=== PATIENT | female | born 2000 | race African-American/Black ===

== ENCOUNTER 2018-06-02 15:36 | Emergency (ER) | payer MEDICAID, OTHER ==
[~2018-06-02] VITALS: Ht 165.1 cm; Wt 70.0 kg
[~2018-06-02 15:36] MED LIST: ALBUTEROL; SINGULAIR
[2018-06-02] MEDS ORDERED: ONDANSETRON HCL 4MG/2ML INJ IV STA (15:59)
[2018-06-02] MEDS ORDERED: SODIUM CHLORIDE 0.9% 1,000 ML IV ONE (15:59)
[2018-06-02] MEDS ORDERED: ALBUTEROL (0.083%) 2.5MG/3ML NEB HHN STA (15:59)
[2018-06-02] MEDS ORDERED: METHYLPREDNISOLONE SOD SUCC 125 MG/2 ML VIAL IV STA (15:59)
[2018-06-02] MEDS ORDERED: IPRATROPIUM BROMIDE (0.02%) 0.5MG/2.5ML NEB HHN STA (15:59)
[2018-06-02] MEDS ORDERED: MORPHINE SULFATE 4 MG/ML CPJ (NOT FOR IM USE) IV STA (15:59)
[2018-06-02 16:49] LABS: HEMATOCRIT. 28.9 % (36.0-48.0); HEMOGLOBIN. 9.9 g/dL (12.0-16.0); MEAN CORPUSCULAR HEMOGLOBIN 31.5 pg (28.0-32.0); MEAN CORPUSCULAR VOLUME 92.2 fL (81.0-99.0); MEAN PLATELET VOLUME 7.4 fl (7.4-10.4); PLATELET 140 x1000/uL (130-400); RED BLOOD CELL COUNT 3.14 mill/uL (4.2-5.4); RED CELL DISTRIBUTION WIDTH 12.4 % (11.6-14.6)
[2018-06-02 16:54] LABS: CHLORIDE 104 mEq/L (98-107)
[2018-06-02 17:05] LABS: HCG SCREEN NEGATIVE
[2018-06-02 18:00] LABS: NUCLEATED RED BLOOD CELLS 2 /100 WBC
[2018-06-02 18:01] LABS: PLATELET ESTIMATE NORMAL
[2018-06-02 18:52] LABS: CLARITY URINE CLEAR (CLEAR); COLOR URINE YELLOW (YELLOW); KETONES URINE NEGATIVE (NEGATIVE); LEUKOCYTE ESTERASE URINE NEGATIVE (NEGATIVE); NITRITE URINE NEGATIVE (NEGATIVE); OCCULT BLOOD URINE NEGATIVE (NEGATIVE); PH URINE 8.5 (4.5-8.0); PROTEIN URINE NEGATIVE (NEGATIVE); SPECIFIC GRAVITY URINE 1.013 (1.005-1.030)
[2018-06-02 20:57] VITALS: BP 118/75
== END 2018-06-02 21:01 | disposition home or self-care (01) ==
LOC: ER 15:36
DX: K59.00 Constipation, unspecified (principal); J45.909 Unspecified asthma, uncomplicated; Z79.899 Other long term (current) drug therapy
CPT/HCPCS: 36415; 71045; 74177; 80053; 81003; 81025; 83690; 84703; 85025; 85610; 85730; 93005; 96374; 96375; 99285; J2270; J2405; J2930; J7030; J7611

== ENCOUNTER 2018-06-05 02:17 | Emergency (ER) | payer MEDICAID ==
[~2018-06-05] VITALS: Ht 165.1 cm; Wt 59.0 kg
[2018-06-05] MEDS ORDERED: FAMOTIDINE 20MG/2ML VIAL IV STA (02:59)
[2018-06-05] MEDS ORDERED: SODIUM CHLORIDE 0.9% 1,000 ML IV ONE (02:59)
[2018-06-05] MEDS ORDERED: ONDANSETRON HCL 4MG/2ML INJ IV STA (02:59)
[2018-06-05 03:33] LABS: HEMATOCRIT. 29.1 % (36.0-48.0); MEAN CORPUSCULAR HEMOGLOBIN 31.5 pg (28.0-32.0); MEAN CORPUSCULAR VOLUME 91.9 fL (81.0-99.0); MEAN PLATELET VOLUME 7.1 fl (7.4-10.4); PLATELET 314 x1000/uL (130-400); RED BLOOD CELL COUNT 3.16 mill/uL (4.2-5.4); RED CELL DISTRIBUTION WIDTH 12.6 % (11.6-14.6)
[2018-06-05 03:40] LABS: CHLORIDE 103 mEq/L (98-107); HCG SCREEN NEGATIVE
[2018-06-05] MEDS ORDERED: MORPHINE SULFATE 4 MG/ML CPJ (NOT FOR IM USE) IV ONE (03:45)
[2018-06-05 05:04] LABS: CLARITY URINE CLEAR (CLEAR); COLOR URINE YELLOW (YELLOW); KETONES URINE NEGATIVE (NEGATIVE); LEUKOCYTE ESTERASE URINE NEGATIVE (NEGATIVE); NITRITE URINE NEGATIVE (NEGATIVE); OCCULT BLOOD URINE NEGATIVE (NEGATIVE); PROTEIN URINE NEGATIVE (NEGATIVE); SPECIFIC GRAVITY URINE 1.013 (1.005-1.030)
[2018-06-05 05:29] VITALS: BP 127/55
[2018-06-05 07:27] LABS: PLATELET ESTIMATE NORMAL
== END 2018-06-05 05:31 | disposition home or self-care (01) ==
LOC: ER 02:17
DX: R10.84 Generalized abdominal pain (principal); K59.00 Constipation, unspecified; D64.9 Anemia, unspecified; R68.83 Chills (without fever); R11.2 Nausea with vomiting, unspecified; J45.909 Unspecified asthma, uncomplicated; M79.1 Myalgia; R09.89 Other specified symptoms and signs involving the circulatory and respiratory systems; Z94.81 Bone marrow transplant status
CPT/HCPCS: 36415; 80053; 81003; 81025; 83605; 83690; 84703; 85025; 96361; 96374; 96375; 99284; J2270; J2405; J3490; J7030

== ENCOUNTER 2018-06-16 12:56 | Emergency (ER) | payer MEDICAID ==
[~2018-06-16] VITALS: Ht 162.6 cm; Wt 55.0 kg
[2018-06-16] MEDS ORDERED: SODIUM CHLORIDE 0.9% 1,000 ML IV ONE (15:34)
[2018-06-16] MEDS ORDERED: ONDANSETRON HCL 4MG/2ML INJ IV STA (15:34)
[2018-06-16] MEDS ORDERED: KETOROLAC 30MG/ML VIAL IV STA (15:34)
[2018-06-16 17:20] LABS: HEMATOCRIT. 28.8 % (36.0-48.0); HEMOGLOBIN. 9.8 g/dL (12.0-16.0); MEAN CORPUSCULAR HEMOGLOBIN 31.7 pg (28.0-32.0); MEAN CORPUSCULAR VOLUME 92.6 fL (81.0-99.0); MEAN PLATELET VOLUME 7.7 fl (7.4-10.4); PLATELET 410 x1000/uL (130-400); RED BLOOD CELL COUNT 3.11 mill/uL (4.2-5.4); RED CELL DISTRIBUTION WIDTH 13.7 % (11.6-14.6)
[2018-06-16 17:27] LABS: CHLORIDE 106 mEq/L (98-107)
[2018-06-16] MEDS ORDERED: ACETAMINOPHEN WITH CODEINE 300/30MG TABLET PO NR (18:02)
[2018-06-16] MEDS ORDERED: CEFTRIAXONE 1 G PREMIX 50 ML IV NR (18:15)
[2018-06-16 18:37] LABS: PLATELET ESTIMATE SLIGHTLY INCREASED
[2018-06-16 18:54] LABS: CLARITY URINE TURBID (CLEAR); COLOR URINE YELLOW (YELLOW); KETONES URINE 2+ (NEGATIVE); LEUKOCYTE ESTERASE URINE 1+ (NEGATIVE); NITRITE URINE NEGATIVE (NEGATIVE); OCCULT BLOOD URINE NEGATIVE (NEGATIVE); PH URINE 6.5 (4.5-8.0); PROTEIN URINE NEGATIVE (NEGATIVE); SPECIFIC GRAVITY URINE 1.019 (1.005-1.030); UROBILINOGEN URINE 0.2 E.U./dL (0.2-1.0)
[2018-06-16 19:06] VITALS: BP 118/71
== END 2018-06-16 19:07 | disposition home or self-care (01) ==
LOC: ER 12:56
DX: J02.9 Acute pharyngitis, unspecified (principal); B37.0 Candidal stomatitis; J45.909 Unspecified asthma, uncomplicated
CPT/HCPCS: 36415; 80053; 81003; 81025; 85025; 87070; 87106; 87430; 96365; 96375; 99285; J0696; J1885; J2405; J7030

== ENCOUNTER 2020-02-19 15:28 | Emergency (ER) | payer MEDICAID ==
[~2020-02-19] VITALS: Ht 160 cm; Wt 56.0 kg
[2020-02-19 19:25] VITALS: BP 121/74
== END 2020-02-19 19:25 | disposition home or self-care (01) ==
LOC: ER 15:28
DX: S16.1XXA Strain of muscle, fascia and tendon at neck level, initial encounter (principal); S29.012A Strain of muscle and tendon of back wall of thorax, initial encounter; S80.11XA Contusion of right lower leg, initial encounter; J45.909 Unspecified asthma, uncomplicated; V43.62XA Car passenger injured in collision with other type car in traffic accident, initial encounter; Y93.9 Activity, unspecified; Y92.410 Unspecified street and highway as the place of occurrence of the external cause; Z85.830 Personal history of malignant neoplasm of bone; Z98.890 Other specified postprocedural states
CPT/HCPCS: 71250; 99285